=== PATIENT | male | born 2000 | race Caucasian/White ===

== ENCOUNTER 2023-09-12 08:08 | Outpatient (CLI) | payer OTHER, SELFPAY ==
[2023-09-12 08:28] LABS: Volume Semen 3.5 mL (2-5)
[2023-09-12 08:29] LABS: Red Blood Count Semen 0-4 /hpf
[2023-09-12 08:30] LABS: Epithelial Count Semen 0-4 /hpf
[2023-09-12 08:31] LABS: Pathology Referral Yes; Sperm Immotility 40 % (50-60); Sperm Non-Progressive Motility 10 % (5-10); Sperm Progressive Motility 50 % (31-34); Viscosity Semen High Viscosity
[2023-09-12 09:01] LABS: Sperm Count 4.3 mill/mL (40-160)
[2023-09-12 09:07] LABS: PH Semen 7.5 (7.0-8.0)
== END 2023-09-12 08:09 | disposition home or self-care (01) ==
LOC: LAB 08:13
PROVIDERS: PCP Family Medicine; Visit Provider Family Medicine
DX: Z31.41 Encounter for fertility testing (principal)
CPT/HCPCS: 80503; 89320